=== PATIENT | male | born 1965 | race Hispanic/Latino ===

== ENCOUNTER 2018-08-10 06:33 | Inpatient (IN) | payer SELFPAY ==
[2018-08-10] MEDS ORDERED: ASPIRIN PO ONE (06:45)
[2018-08-10 07:29] LABS: Basophils # (Auto) 0.1 K/mm3 (0.0-0.1); Basophils % (Auto) 0.8 % (0.0-1.8); Eosinophils # (Auto) 0.3 K/mm3 (0.0-0.4); Eosinophils % (Auto) 2.7 % (0.0-4.3); Hematocrit 48.6 % (35.5-45.6); Hemoglobin 16.4 gm/dl (11.8-15.2); Lymphocytes # (Auto) 1.6 K/mm3 (1.2-5.4); Lymphocytes % (Auto) 15.1 % (13.4-35.0); Mean Corpuscular HGB Conc 34 % (32-34); Mean Corpuscular Volume 94 fl (84-94); Monocytes # (Auto) 0.8 K/mm3 (0.0-0.8); Monocytes % (Auto) 7.9 % (0.0-7.3); Platelet Count 260 K/mm3 (140-440); Red Blood Count 5.19 M/mm3 (3.65-5.03); Red Cell Distribution Width 13.1 % (13.2-15.2)
[2018-08-10] MEDS ORDERED: NITRO-BID 2% TP ONE (07:46)
[2018-08-10 07:48] LABS: BUN/Creatinine Ratio 16; Blood Urea Nitrogen 8 mg/dL (9-20); Calcium 9.3 mg/dL (8.4-10.2); Hemolysis Index 27
--- NOTE | 2018-08-10 07:53 | Emergency Department Report ---
HPI - General Chief Complaint: Chest Pain Time Seen by Provider: 08/10/18 07:37 - HPI HPI: Room 4 The patient is a 53-year-old male presenting with a chief complaint of chest pain. Patient states for the past 2-3 days he's had a mostly constant substern al chest tightness. Patient admits to shortness of breath and diaphoresis but denies nausea/vomiting. Patient denies cough or recent flights. Patient currently gets his pain score of 6/10. Patient states he's never had a stress test or cardiac catheterization Location: Chest Duration: 2-3 days Quality: Tightness Severity: 6/10 Modifying factors: [see above] Context: [see above] Mode of transportation: Unknown ED Past Medical Hx - Past Medical History Previous Medical History?: No - Surgical History Past Surgical History?: No - Family History Family history: no significant - Social History Smoking Status: Current Every Day Smoker (1 pack per day) Substance Use Type: None (denies illicit drug use), Alcohol (frequently) ED Review of Systems ROS: Stated complaint: CHEST PAIN Other details as noted in HPI Constitutional: diaphoresis Eyes: denies: eye pain ENT: denies: throat pain Respiratory: shortness of breath Cardiovascular: chest pain Endocrine: no symptoms reported Gastrointestinal: denies: nausea, vomiting Genitourinary: denies: dysuria Musculoskeletal: denies: back pain Neurological: denies: headache Physical Exam - Physical Exam Vital Signs: Vital Signs 08/10/18 08/10/18 06:41 06:46 Temperature 97.5 F L 97.9 F Pulse Rate 58 L 58 L Respiratory 16 16 Rate Blood Pressure 151/98 151/98 O2 Sat by Pulse 97 97 Oximetry Physical Exam: GENERAL: The patient is well-developed well-nourished male lying on stretcher not appearing to be in acute distress. [] HEENT: Normocephalic. Atraumatic. Extraocular motions are intact. Patient has moist mucous membranes. NECK: Supple. Trachea midline CHEST/LUNGS: Clear to auscultation. There is no respiratory distress noted. HEART/CARDIOVASCULAR: Regular. There is no tachycardia. There is no gallop rub or murmur. ABDOMEN: Abdomen is soft, nontender. Patient has normal bowel sounds. There is no abdominal distention. SKIN: There is no rash. There is no edema. There is no diaphoresis. NEURO: The patient is awake, alert, and oriented. The patient is cooperative. The patient has normal speech MUSCULOSKELETAL: There is no evidence of acute injury. ED Course Vital Signs 08/10/18 08/10/18 06:41 06:46 Temperature 97.5 F L 97.9 F Pulse Rate 58 L 58 L Respiratory 16 16 Rate Blood Pressure 151/98 151/98 O2 Sat by Pulse 97 97 Oximetry - Consultations Consultation #1: 08/10/18 08:15 Cardiology paged 08/10/18 08:[address] Reyes-will evaluate patient Consultation #2: 08/10/18 08:[address] Knight- requests patient be admitted to telemetry ED Medical Decision Making - Lab Data Result diagrams: 08/10/18 07:08 08/10/18 07:08 Laboratory Tests 08/10/18 08/10/18 07:08 07:08 WBC 10.7 RBC 5.19 H Hgb 16.4 H Hct 48.6 H MCV 94 MCH 32 MCHC 34 RDW 13.1 L Plt Count 260 Lymph % (Auto) 15.1 Wirt % (Auto) 7.9 H Eos % (Auto) 2.7 Baso % (Auto) 0.8 Lymph # 1.6 Wirt # 0.8 Eos # 0.3 Baso # 0.1 Seg Neutrophils % 73.5 H Seg Neutrophils # 7.8 H Sodium 140 Potassium 4.4 Chloride 99.7 Carbon Dioxide 26 Anion Gap 19 BUN 8 L Creatinine 0.5 L Estimated GFR > 60 BUN/Creatinine Ratio 16 Glucose 106 H Calcium 9.3 Laboratory Tests 08/10/18 08/10/18 07:08 07:08 WBC 10.7 RBC 5.19 H Hgb 16.4 H Hct 48.6 H MCV 94 MCH 32 MCHC 34 RDW 13.1 L Plt Count 260 Lymph % (Auto) 15.1 Wirt % (Auto) 7.9 H Eos % (Auto) 2.7 Baso % (Auto) 0.8 Lymph # 1.6 Wirt # 0.8 Eos # 0.3 Baso # 0.1 Seg Neutrophils % 73.5 H Seg Neutrophils # 7.8 H Sodium 140 Potassium 4.4 Chloride 99.7 Carbon Dioxide 26 Anion Gap 19 BUN 8 L Creatinine 0.5 L Estimated GFR > 60 BUN/Creatinine Ratio 16 Glucose 106 H Calcium 9.3 Troponin T 0.168 H* Triglycerides 99 Cholesterol 296 H LDL Cholesterol Direct 210 H HDL Cholesterol 90 H Cholesterol/HDL Ratio 3.28 - EKG Data -: EKG Interpreted by Me EKG shows normal: sinus rhythm Rate: bradycardia (53 bpm) - EKG Data When compared to previous EKG there are: previous EKG unavailable Interpretation: nonspecific ST-T wave leidy (T-wave inversion in lead aVL) - Radiology Data Radiology results: image reviewed (chest x-ray) interpreted by me: Chest x-ray-no focal infiltrates, no pneumothorax - Differential Diagnosis ACS, pericarditis, GERD Critical care attestation.: If time is entered above; I have spent that time in minutes in the direct care of this critically ill patient, excluding procedure time. ED Disposition Clinical Impression: Chest pain, Elevated troponin Disposition: DC-09 OP ADMIT IP TO THIS HOSP Is pt being admited?: Yes Does the pt Need Aspirin: Yes Condition: Fair Instructions: Chest Pain (ED) Time of Disposition: 08:16 (hospitalist paged)
[2018-08-10 08:09] LABS: Chol/HDL Ratio 3.28 %; HDL Cholesterol 90 mg/dL (40-59); LDL Cholesterol,Direct 210 mg/dL (50-130)
[2018-08-10] MEDS ORDERED: ZOFRAN IV ONE (08:16)
[2018-08-10] MEDS ORDERED: SUBLIMAZE IV ONE (08:16)
--- NOTE | 2018-08-10 09:34 | XRay Report ---
AP CHEST: HISTORY: chest pain AP view of the chest demonstrates a normal mediastinal and cardiac contour with clear lungs and normal bony and soft tissue structures. IMPRESSION: Unremarkable AP chest.
[2018-08-10] MEDS ORDERED: NITROSTAT SL PRN (10:22)
[2018-08-10] MEDS ORDERED: HEPARIN 10,000 UNITS/10 ML IV ONE ×2 (10:24→11:45)
--- NOTE | 2018-08-10 10:28 | History and Physical Report ---
History of Present Illness Date of examination: 08/10/18 Date of admission: 08/10/18 08:26 Chief complaint: chest pain History of present illness: 53-year-old female old male patient with no significant past medical history presented to the emergency room with chest pain of 2-3 days duration, Patient rates his pain between 5-6/10 associated with sprain associated with mild nausea vomiting mild shortness of breath and diaphoresis denies nausea vomiting, Never had similar symptoms in the past has no history of coronary artery disease, Cardiology evaluated the patient had stat heart cath today Past History Past Medical History: No medical history Past Surgical History: No surgical history Social history: lives with family, smoking, alcohol abuse (occasional), other Family history: hypertension Medications and Allergies Allergies Allergy/AdvReac Type Severity Reaction Status Date / Time No Known Allergies Allergy Verified 08/10/18 07:42 Home Medications Medication Instructions Recorded Confirmed Last Taken Type No Known Home Medications [No 08/10/18 08/10/18 Unknown History Reported Home Medications] Active Meds: Active Medications Aspirin (Aspirin) 325 mg PO QDAY IDALIA Atorvastatin Calcium (Lipitor) 40 mg PO QHS IDALIA Carvedilol (Coreg) 6.25 mg PO BID IDALIA Heparin Sodium (Porcine) (Heparin 10,000 Units/10 Ml) 4,500 unit 60 unit/kg (4500 unit) IV ONCE ONE Stop: 08/10/18 10:25 Lisinopril (Zestril) 10 mg PO QDAY IDALIA Nitroglycerin (Nitrostat) 0.4 mg SL .Q5MIN PRN PRN Reason: Chest Pain Review of Systems Constitutional: no weight loss, no weight gain, no fever, no chills Cardiovascular: chest pain, no orthopnea, no palpitations, no shortness of breath Respiratory: no cough with sputum, no hemoptysis Gastrointestinal: no nausea, no vomiting Genitourinary Male: no dysuria, no hematuria Integumentary: no rash, no lesions Neurological: no paralysis, no weakness, no parathesias Psychiatric: no anxiety, no depression Endocrine: no cold intolerance, no heat intolerance, no polyphagia, no excessive thirst Hematologic/Lymphatic: no easy bruising, no easy bleeding Allergic/Immunologic: no urticaria, no allergic rhinitis Exam - Constitutional Vitals: Temp Pulse Resp BP Pulse Ox 97.9 F 49 L 14 145/87 97 08/10/18 06:46 08/10/18 10:00 08/10/18 10:09 08/10/18 10:09 08/10/18 10:09 General appearance: Present: no acute distress, well-nourished - EENT Eyes: Present: PERRL, EOM intact - Neck Neck: Present: supple, normal ROM - Respiratory Respiratory effort: normal Respiratory: bilateral: diminished, negative: rales, rhonchi, wheezing - Cardiovascular Rhythm: regular Heart Sounds: Present: S1 & S2 - Extremities Extremities: no ischemia, No edema - Abdominal General gastrointestinal: Present: soft, non-tender, non-distended, normal bowel sounds - Integumentary Integumentary: Present: clear, warm - Musculoskeletal Musculoskeletal: strength equal bilaterally - Psychiatric Psychiatric: cooperative - Neurologic Neurologic: CNII-XII intact, moves all extremities Results - Labs CBC & Chem 7: 08/10/18 11:20 08/10/18 07:08 Labs: Abnormal lab results 08/10/18 08/10/18 Range/Units 07:08 07:08 RBC 5.19 H (3.65-5.03) M/mm3 Hgb 16.4 H (11.8-15.2) gm/dl Hct 48.6 H (35.5-45.6) % RDW 13.1 L (13.2-15.2) % [place] % (Auto) 7.9 H (0.0-7.3) % Seg Neutrophils % 73.5 H (40.0-70.0) % Seg Neutrophils # 7.8 H (1.8-7.7) K/mm3 BUN 8 L (9-20) mg/dL Creatinine 0.5 L (0.8-1.5) mg/dL Glucose 106 H (75-100) mg/dL Troponin T 0.168 H* (0.00-0.029) ng/mL Cholesterol 296 H (50-199) mg/dL LDL Cholesterol Direct 210 H (50-130) mg/dL HDL Cholesterol 90 H (40-59) mg/dL Assessment and Plan --Non-ST elevation MN; cardiology evaluated the patient Aspirin, beta blockers, nitrates, statins, morphine, SHORTY inhibitor is echocardiogram for LV function and ejection fraction, Cardiology evaluation , Stat heart cath Patient was taken to the [facility] from emergency room for stat heart cath. Patient underwent emergent left heart catheterization, Severe single-vessel coronary artery disease, small for further ballooning of stenting, medical management, self left ventricular function EF 55-60%. Cardiology started on aspirin and Plavix --Dyslipidemia: low cholesterol diet, lipitor --Ongoing tobacco use; smoking cessation, nicotine patch --DVT prophylaxis; lovenox Closely monitor the patient and adjust management as needed Plan of care deferred to the patient and his notes Also discussed with the construction flagger Dr.S. Cortes
[2018-08-10] MEDS ORDERED: HEPARIN/NS 5000 UNIT/500ML(CATH LAB) 1,000 ML IR ONE (10:43)
[2018-08-10] MEDS ORDERED: CALAN ONE (10:44)
[2018-08-10] MEDS ORDERED: SUBLIMAZE ONE (10:44)
[2018-08-10] MEDS ORDERED: VERSED ONE (10:44)
[2018-08-10] MEDS ORDERED: NITROGLYCERIN SYRINGE 3 ML ONE (10:44)
[2018-08-10] MEDS ORDERED: NACL 0.9% 500 ML 500 ML ONE (10:56)
[2018-08-10 11:02] LABS: INR 0.89 (0.87-1.13)
[2018-08-10 11:03] LABS: Partial Thromboplastin Time 22.5 Sec. (24.2-36.6)
[2018-08-10] MEDS: XYLOCAINE 2% INFILTRATI ONE ×2 (11:19→11:27)
[2018-08-10] MEDS ORDERED: HEPARIN 10,000 UNITS/10 ML ART-SHEATH ONE (11:21)
[2018-08-10] MEDS ORDERED: XYLOCAINE 2% INFILTRATI ONE ×2 (11:33→11:45)
[2018-08-10] MEDS ORDERED: HEPARIN/NS 5000 UNIT/500ML(CATH LAB) 500 ML IR ONE (11:37)
[2018-08-10 11:46] LABS: Hematocrit 44.5 % (35.5-45.6); Hemoglobin 15.4 gm/dl (11.8-15.2)
[2018-08-10] MEDS ORDERED: PLAVIX ONE (12:08)
[2018-08-10] MEDS ORDERED: ALUM-MAG HYDROX-SIMETH 200-200-20MG/5ML ONE (12:09)
--- NOTE | 2018-08-10 12:22 | Event Note ---
Date: 08/10/18 see consult/cath report d/w Dr. Eugene Tiwari.
[2018-08-10] MEDS ORDERED: NACL 0.9% 1000 ML 1,000 ML IV SCH (13:00)
[2018-08-10] MEDS ORDERED: NACL 0.9% 1000 ML 1,000 ML ONE (14:20)
--- NOTE | 2018-08-10 14:24 | Cardiac Catherization Report ---
REFERRING PHYSICIAN: ER physician and Hospitalist Service. PROCEDURE: Cardiac catheterization. Risks, benefits, and potential alternatives were explained at length prior to obtaining informed consent. PROCEDURE IN DETAIL: The patient was brought to catheterization lab in a postabsorptive state and prepped and draped in sterile fashion. Lg's test in the right hand is normal. He presents with non-STEMI and thus is referred for left heart catheterization. An 8 mL of 2% lidocaine was used to anesthetize the right wrist. A standard 6-Croatian hydrophilic sheath was used to cannulate the right radial artery via modified Seldinger technique. All exchanges were performed to exchange J-tip guidewire. JL3.5 catheter was used to engage the left main. No dampening or ventricularization. Cineangiography was performed in all projections. JR4 catheter was used to cross the aortic valve under fluoroscopic guidance. Left ventriculography performed at 30 DAVIS and 30 SERBIAN projections via hand injections. Catheter was flushed, manual pullback performed with continuous pressure monitoring. Catheter used to engage the right coronary. No dampening or ventricularization. Cineangiography performed in all projections. DATA: Aortic pressure is 130/60, LV pressure is 130, LVP of 12 mmHg. Left ventriculography reveals normal systolic performance with estimated ejection fraction of 55-60%. No evidence of aortic stenosis. CORONARY ANATOMY: Right dominant system. Right coronary is a large vessel, courses AV groove, distally bifurcates in the posterior descending and posterolateral branches. Extensive left lateral wall collaterals were identified. Left main without significant disease, bifurcates left anterior descending and left circumflex. LAD is a large vessel, courses anterior intergroove, wraps around the apex. No significant disease in the LAD or diagonal system. Left circumflex with what appears to be a subacute occlusion proximally with a beak. Given sinus bradycardia, we decided to place a temporary venous pacemaker. We used ultrasound-guided access of the left femoral vein. A 7-Croatian sheath placed. We used a balloon tipped 4-Croatian pacemaker placed in the right ventricular apex functioning normal. Next, we turned our attention to PCI. An EBU 3.5 guide used to engage left main. Aspirin and heparin loaded. Abnormal ACT is confirmed. We used multiple wires and used 0.015 short balloon, Dotter the lesion. Resumption of flow, but this is a 1.0 vessel, maximum 1.5 vessel, which feeds a small portion of the coronary tree. Resumption of flow noted. I decided not to proceed with stenting or further ballooning. The patient is clinically stable, chest pain free. The pacemaker was removed. Right radial sheath was removed. No complications. CONCLUSION: 1. Severe single vessel coronary disease. Successful POBA/Dotter of very small 1.0-1.5 mid circumflex, resumption of [place] 3 flow; however, the vessel is too small for further ballooning or stenting, would treat medically only. No other obstructive disease identified in the coronary tree. 2. Preserved left ventricular systolic performance with estimated ejection fraction of 55-60%. 3. No evidence of aortic stenosis. 4. Normal LVEDP. 5. Successful ultrasound-guided placement of left femoral venous access. 6. Successful fluoroscopic guidance of temporary venous pacemaker. The patient is clinically stable, chest pain free. Aspirin and statin. Hold beta cara due to baseline sinus bradycardia. He is chest pain free at this time. Cycle cardiac enzymes. Check echocardiogram. Needs to quit smoking. Diet and lifestyle modification discussed at length with the patient and his . All questions and concerns were addressed. Reviewed the procedure in detail. Anticipate discharge tomorrow if he remains asymptomatic. Standard groin and radial care. JOB# [id number] DIAN/SHERRON
[2018-08-10] MEDS: ULTRAM PO PRN (16:43)
[2018-08-10 19:10] LABS: Creatine Kinase MB 114.6 ng/mL (0.0-4.0)
[2018-08-10] MEDS ORDERED: COREG PO SCH (22:00)
--- NOTE | 2018-08-10 22:22 | Consultation ---
CARDIOLOGY CONSULTATION REFERRING PHYSICIAN: Hollie Knight MD REASON FOR CONSULTATION: Advice and opinion regarding chest pain. HISTORY OF PRESENT ILLNESS: The patient is a very pleasant 53-year-old gentleman, who has not seen physicians and with active tobacco abuse, who has had 2-3 days of chest tightness, does have shortness of breath, diaphoresis, no nausea or vomiting. No syncope, presyncope. He has not seen a doctor in some time. 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 No fevers, chills, nausea or vomiting. No abdominal pain, hematochezia, melena, hemoptysis or hematemesis. He does complain of shortness of breath from time to time. Chest tightness is 2-3 days old. No previous similar symptoms. No rash, syncope or blurred vision. No headache. PAST MEDICAL HISTORY: None. FAMILY HISTORY: No family history of premature heart disease. SOCIAL HISTORY: As aforementioned. MEDICATIONS: Inpatient and outpatient medications reviewed. REVIEW OF SYSTEMS: As per HPI. PHYSICAL EXAMINATION: VITAL SIGNS: Heart rates in the 50s-60s, sinus rhythm. Blood pressure is in 140s/80s. O2 sat is 97%. LABORATORY DATA: EKG reveals sinus bradycardia, no acute ST segment shift. Chest x-ray is unremarkable. His troponin is also mildly elevated, creatinine is normal. ASSESSMENT: In summary, the patient is a pleasant 53-year-old gentleman: 1. Acute chest pain with findings consistent with an acute coronary syndrome/non-ST elevation myocardial infarction. Agree with aspirin and statin. Hold beta blockade due to baseline bradycardia. Continue Bert. On heparin. All the options were discussed including medical management versus invasive approach, would like to proceed with invasive approach. Risks, benefits, alternatives discussed. Further plans contingent on cath results. He is currently clinically stable. JOB# [id number] SBM/NTS
[2018-08-10] MEDS: PERCOCET 5/325 PO PRN (22:43)
[2018-08-11] MEDS: ULTRAM PO PRN (00:54)
[2018-08-11] MEDS: PERCOCET 5/325 PO PRN (03:51)
[2018-08-11 07:45] LABS: Hematocrit 41.2 % (35.5-45.6); Hemoglobin 13.7 gm/dl (11.8-15.2)
[2018-08-11 08:02] LABS: Creatine Kinase MB 60.5 ng/mL (0.0-4.0)
[2018-08-11 08:04] LABS: BUN/Creatinine Ratio 12; Blood Urea Nitrogen 6 mg/dL (9-20); Calcium 8.8 mg/dL (8.4-10.2); Hemolysis Index 5
[2018-08-11] MEDS ORDERED: ZESTRIL PO SCH (10:00)
[2018-08-11] MEDS ORDERED: ASPIRIN PO SCH (10:00)
[2018-08-11] MEDS ORDERED: PLAVIX PO SCH (10:00)
[2018-08-11] MEDS ORDERED: ECOTRIN PO SCH (10:00)
--- NOTE | 2018-08-11 11:06 | Progress Note ---
Assessment and Plan Currently stable cardiac status. Cont present cardiac regimen, including ASA 325, plavix 75, lipitor 80, lisinopril 10. No BB at this time in setting of asymptomatic sinus bradycardia. Smoking cessation strongly encouraged. Pt may discharge home from cardiology standpoint. Follow up in our [place] office with Dr. Melinda Cortes on 08/21/2018 @ 1:45PM. The patient has been seen in conjunction with Dr. Reyes who agrees with the assessment and plan of care. - Patient Problems (1) NSTEMI (non-ST elevated myocardial infarction) Current Visit: Yes Status: Acute (2) CAD (coronary artery disease) Current Visit: Yes Status: Chronic (3) Hyperlipidemia Current Visit: Yes Status: Chronic (4) Sinus bradycardia Current Visit: Yes Status: Acute (5) Tobacco use Current Visit: Yes Status: Chronic Subjective Date of service: 08/11/18 Principal diagnosis: NSTEMI Interval history: pt resting comfortably in bed, no current cardiac complaints. in SR/SB on telemetry. Objective Last Vital Signs Temp 98.3 F 08/11/18 08:58 Pulse 55 L 08/11/18 10:00 Resp 18 08/11/18 08:58 BP 113/67 08/11/18 10:00 Pulse Ox 96 08/11/18 08:58 - Physical Examination General: No Apparent Distress HEENT: Positive: PERRL, Normocephaly, Mucus Membranes Moist Neck: Positive: neck supple, trachea midline Cardiac: Positive: Reg Rate and Rhythm, S1/S2 Lungs: Positive: Decreased Breath Sounds Neuro: Positive: Grossly Intact Abdomen: Positive: Soft. Negative: Tender Skin: Negative: Rash, Wound Incision: Cardiac Cath Site (right radial, c/d/i, no bleeding or hematoma) Extremities: Absent: edema - Labs and Meds Cardiac Enzymes 08/10/18 08/10/18 08/11/18 Range/Units 11:20 18:20 06:14 CK-MB (CK-2) 81.0 H 114.6 H 60.5 H (0.0-4.0) ng/mL Coagulation 08/10/18 Range/Units 10:40 APTT 22.5 L (24.2-36.6) Sec. CBC 08/10/18 08/11/18 Range/Units 11:20 06:14 Hgb 15.4 H 13.7 (11.8-15.2) gm/dl Hct 44.5 41.2 (35.5-45.6) % Plt Count 233 (140-440) K/mm3 Comprehensive Metabolic Panel 08/11/18 Range/Units 06:14 Sodium 139 (137-145) mmol/L Potassium 4.2 (3.6-5.0) mmol/L Chloride 100.4 (98-107) mmol/L Carbon Dioxide 27 (22-30) mmol/L BUN 6 L (9-20) mg/dL Creatinine 0.5 L (0.8-1.5) mg/dL Glucose 101 H (75-100) mg/dL Calcium 8.8 (8.4-10.2) mg/dL - Imaging and Cardiology EKG: report reviewed, image reviewed Echo: report reviewed Cardiac cath: report reviewed - Telemetry EKG Rhythm: Sinus Rhythm
[2018-08-11 11:46] VITALS: BP 108/71
--- NOTE | 2018-08-11 13:35 | Discharge Summary ---
Providers - Providers Date of Admission: 08/10/18 08:26 Date of discharge: 08/11/18 Attending physician: MAURICE RODRIGUEZ 08/10/18 Consult to Cardiac Rehabilitation [CONS] Routine Reason For Exam: post pci 08/10/18 08:38 Consult to Physician [CONS] Urgent Comment: Consulting Provider: KAITLIN SCHMID Physician Instructions: Reason For Exam: chest pain, elevated troponin Primary care physician: [facility], Hospitalization Reason for admission: chest pain Condition: Good Pertinent studies: : EF 55-60% normal systolic and diastolic function Procedures: left heart catheterization, Severe single-vessel coronary artery disease, small for further ballooning of stenting, medical management, self left ventricular function EF 55-60%. Hospital course: 53-year-old female old male patient with no significant past medical history a dmitted through emergency room with ,chest pain of 2-3 days duration, Cardiology evaluated the patient had stat heart cath: which revealed Severe single-vessel coronary artery disease, , small for further ballooning of stenting, medical management, self left ventricular function EF 55-60%. Cardiology started on aspirin and Plavix. Today patient feels better,no new complaints. Vitals stable,Physical exam unremarkable. Cleared by cardiology ,Stable at discharge. Discharge Diagnosis: --Non-ST elevation PR; cardiology evaluated the patient received Aspirin, no beta blockers due to bradycardia, nitrates, statins, morphine, SHORTY inhibitor Patient underwent emergent left heart catheterization, Severe single-vessel coronary artery disease, small for further ballooning of stenting, medical management, left ventricular function EF 55-60%. Cardiology started on aspirin and Plavix --Asymptomatic bradycardia : hold beta blockers --Dyslipidemia: low cholesterol diet, lipitor --Ongoing tobacco use; smoking cessation, nicotine patch Disposition: DC/[place]-63 MEDICARE CERT LT[facility] Time spent for discharge: 32 min Core Measure Documentation - Palliative Care Palliative Care/ Comfort Measures: Not Applicable - Core Measures Any of the following diagnoses?: none Exam - Constitutional Vitals: Temp Pulse Resp BP Pulse Ox 98.3 F 63 18 108/71 96 08/11/18 08:58 08/11/18 11:44 08/11/18 08:58 08/11/18 11:44 08/11/18 11:44 General appearance: Present: no acute distress, well-nourished - EENT Eyes: Present: PERRL, EOM intact - Neck Neck: Present: supple, normal ROM - Respiratory Respiratory effort: normal Respiratory: negative: rales, rhonchi, wheezing - Cardiovascular Rhythm: regular Heart Sounds: Present: S1 & S2 - Extremities Extremities: no ischemia, No edema - Abdominal General gastrointestinal: Present: soft, non-tender, non-distended, normal bowel sounds - Integumentary Integumentary: Present: clear, warm - Musculoskeletal Musculoskeletal: strength equal bilaterally - Psychiatric Psychiatric: appropriate mood/affect, cooperative - Neurologic Neurologic: CNII-XII intact, moves all extremities Plan Activity: no restrictions Diet: other (cardiac diet) Special Instructions: smoking cessation Additional Instructions: If you have chest pain or shortness of breath. contact MD or go to ER Follow up with: SONNY MARIE MD [Staff Physician] - 7 Days (Follow up in our [place] office with Dr. Melinda Marie on 08/21/2018 @ 1:45PM. ) [facility] CARA [Primary Care Provider] - 7 Days Prescriptions: Aspirin EC [Aspirin Enteric Coated TAB] 325 mg PO QDAY #30 tablet Nicotine [Habitrol] 21 mg TD DAILY #30 patch AtorvaSTATin [Lipitor] 80 mg PO QHS #30 tab Clopidogrel [Plavix] 75 mg PO QDAY #30 tablet Lisinopril [Zestril TAB] 10 mg PO QDAY #30 tablet
== END 2018-08-11 15:35 | disposition home or self-care (01) | DRG 282 ==
LOC: ED 06:33 → 4A 08:26
PROVIDERS: ADMIT Internal Medicine; ATTEND Internal Medicine
PROC: 4A023N7 Measurement of Cardiac Sampling and Pressure, Left Heart, Percutaneous Approach (ICD-10-PCS; principal; 2018-08-10)
PROC: B2111ZZ Fluoroscopy of Multiple Coronary Arteries using Low Osmolar Contrast (ICD-10-PCS; 2018-08-10)
PROC: B2151ZZ Fluoroscopy of Left Heart using Low Osmolar Contrast (ICD-10-PCS; 2018-08-10)
DX: I21.4 Non-ST elevation (NSTEMI) myocardial infarction (principal); F17.210 Nicotine dependence, cigarettes, uncomplicated; F10.10 Alcohol abuse, uncomplicated; I25.10 Atherosclerotic heart disease of native coronary artery without angina pectoris; E78.5 Hyperlipidemia, unspecified; R00.1 Bradycardia, unspecified; Z71.6 Tobacco abuse counseling; Z82.49 Family history of ischemic heart disease and other diseases of the circulatory system
CPT/HCPCS: 33210; 36415; 71045; 80048; 80061; 82550; 82553; 84484; 85014; 85018; 85025; 85049; 85347; 85610; 85730; 92920; 93005; 93010; 93306; 93458; 96374; 96375; 99285; G0378; A9270-GY; C1769; C1887; C1894; J1644; J2250; J2405; J3010; J7030; J7040; Q9967